=== PATIENT | male | born 1945 | race African-American/Black ===

== ENCOUNTER 2017-08-23 12:26 | Emergency (ER) | payer MEDICARE, OTHER ==
[~2017-08-23] VITALS: Ht 186.7 cm; Wt 94.5 kg
[~2017-08-23 12:26] MED LIST: 1-ME1LIQ PO; ECOT81TA2 PO; LISI-363 PO; OMEP20TA PO; PRAV40 PO
[2017-08-23 12:27] VITALS: BP 164/94; PULSE 98; RESP 16; TEMP 98.7; O2SAT 98
[2017-08-23] MEDS ORDERED: HEPATITIS B IMMUNE GLOBULIN IM ONE (17:30)
[2017-08-23] MEDS ORDERED: LOPINAVIR/RITONAVIR 200 MG/50 MG TAB PO ONE (17:30)
[2017-08-23] MEDS ORDERED: ZIDOVUDINE 100 MG CAP PO ONE (17:30)
--- NOTE | 2017-08-23 17:41 | PD ---
HPI Chief Complaint: Medical Clearance Time Seen by Provider: 17:07 Travel History International Travel<30 days: No Contact w/Intl Traveler<30days: No Traveled to known affect area: No History of Present Illness HPI 71yo M with PMH of prostate CA currently not on chemotherapy, pace maker here requesting PEP for possible exposure to HIV through sexual intercourse last night. Pt said it was anal intercourse with another man who most likely has HIV at 3am and he did not use protection. Pt denies any fever, chest pain, sob , n/v, abdominal pain, focal weakness or numbness. Pt went to health department and was told to come here for the medication. PFSH Past Medical History Hx Anticoagulant Therapy: No Arthritis: No Asthma: No Autoimmune Disease: No Anxiety: No Depression: No Heart Rhythm Problems: No Cancer: Yes (PROSTATE) Cardiovascular Problems: Yes (HTN, pacemaker) High Cholesterol: No Chemotherapy: No Chest Pain: No Congestive Heart Failure: No COPD: No Cerebrovascular Accident: No Diabetes: No Endocrine: No GERD: No Genitourinary: Yes (prostate cancer, in remission) Hiatal Hernia: No Hypertension: Yes Immune Disorder: No Kidney Stones: No Musculoskeletal: Yes (RIGHT KNEE ARTROSCOPY) Neurologic: No Psychiatric: No Reproductive: No Respiratory: No Migraines: No Radiation Therapy: Yes (PROSTATE) Renal Failure: No Seizures: No Sickle Cell Disease: No Sleep Apnea: No Ulcer: No Past Surgical History Abdominal Surgery: No AICD: No Arteriovenous Shunt: No Cardiac Surgery: Yes (HEART CATH 1999) Ear Surgery: No Endocrine Surgery: No Eye Surgery: Yes (LASIK SURGERY BILATERAL EYES) Genitourinary Surgery: No Gynecologic Surgery: No Insulin Pump: No Joint Replacement: No Oral Surgery: Yes (TEETH PULLED) Pacemaker: No Thoracic Surgery: No Other Surgery: Yes (2011) Social History Alcohol Use: No Tobacco Use: No Substance Use: No Allergies-Medications (Allergen,Severity, Reaction): Coded Allergies: No Known Allergies (Unverified , 05/05/15) Reported Meds & Prescriptions Reported Meds & Active Scripts Active Kaletra (Lopinavir/Ritonavir) 200-50 Mg Tab 2 Tab PO Q12HR 28 Days Fill this prescription for a 23 day supply of Kaletra ONLY if advised to do so by either [facility] OR the Emergency Department. Zidovudine 300 Mg Tab 300 Mg PO Q12HR 28 Days Lamivudine 150 Mg Tab 150 Mg PO BID 28 Days Lisinopril 20 mg (Lisinopril) 20 Mg Tab 1 Tab PO BID 30 Days Pravastatin Sodium 40 Mg Tab 40 Mg PO DAILY 30 Days Ecotrin Low Strength (Aspirin) 81 Mg Tabec 81 Mg PO DAILY 30 Days Reported Omeprazole 20 mg (Omeprazole) 20 Mg Tab 1 Tab PO DAILY 1-Methyl 2-Pyrrolidinone (1-Methyl 2-Pyrrolidone (Bulk)) 10 Mg Tab 1 Tab PO DAILY Review of Systems Except as stated in HPI: all other systems reviewed are Neg Physical Exam Narrative GENERAL: 71yo M not in distress. SKIN: Focused skin assessment warm/dry. HEAD: Atraumatic. Normocephalic. EYES: Pupils equal and round. No scleral icterus. No injection or drainage. ENT: No nasal bleeding or discharge. Mucous membranes pink and moist. NECK: Trachea midline. No JVD. CARDIOVASCULAR: Regular rate and rhythm. No murmur appreciated. RESPIRATORY: No accessory muscle use. Clear to auscultation. Breath sounds equal bilaterally. GASTROINTESTINAL: Abdomen soft, non-tender, nondistended. MUSCULOSKELETAL: No obvious deformities. No clubbing. No cyanosis. No edema. NEUROLOGICAL: Awake and alert. No obvious cranial nerve deficits. Motor grossly within normal limits. Normal speech. PSYCHIATRIC: Appropriate mood and affect; insight and judgment normal. Data Data Last Documented VS Vital Signs Date Time Temp Pulse Resp B/P (MAP) Pulse Ox O2 Delivery O2 Flow Rate FiO2 08/23/17 12:27 98.7 98 16 164/94 (117) 98 Orders Orders Lamivudine (Epivir) (08/23/17 17:30) Zidovudine (Retrovir) (08/23/17 17:30) Lopinavir-Ritonavir 200-50 Mg (Kaletra 2 (08/23/17 17:30) Complete Blood Count With Diff (08/23/17 17:18) Basic Metabolic Panel (Bmp) (08/23/17 17:18) Hepatic Functional Panel (08/23/17 17:18) Hepatitis B Surface Ag (08/23/17 17:18) Hepatitis B Surface Ab (08/23/17 17:18) Hepatitis B Core Total Ab (08/23/17 17:18) Hepatitis C Ab,Igg (08/23/17 17:18) Hiv Antibody Screen (08/23/17 17:18) Gc And Chlamydia Pcr (08/23/17 17:18) Electrocardiogram (08/23/17 17:01) Rapid Plasmin Reagin Screen (08/23/17 17:41) Non-Formulary Drug (08/23/17 19:00) Labs Laboratory Tests Test 08/23/17 19:25 White Blood Count 4.9 TH/MM3 Red Blood Count 5.52 MIL/MM3 Hemoglobin 15.4 GM/DL Hematocrit 44.9 % Mean Corpuscular Volume 81.3 FL Mean Corpuscular Hemoglobin 27.8 PG Mean Corpuscular Hemoglobin Concent 34.2 % Red Cell Distribution Width 14.8 % Platelet Count 149 TH/MM3 Mean Platelet Volume 8.6 FL Neutrophils (%) (Auto) 75.0 % Lymphocytes (%) (Auto) 14.3 % Monocytes (%) (Auto) 9.3 % Eosinophils (%) (Auto) 0.7 % Basophils (%) (Auto) 0.7 % Neutrophils # (Auto) 3.7 TH/MM3 Lymphocytes # (Auto) 0.7 TH/MM3 Monocytes # (Auto) 0.5 TH/MM3 Eosinophils # (Auto) 0.0 TH/MM3 Basophils # (Auto) 0.0 TH/MM3 CBC Comment DIFF FINAL Differential Comment Blood Urea Nitrogen 14 MG/DL Creatinine 1.29 MG/DL Random Glucose 90 MG/DL Total Protein 8.4 GM/DL Albumin 4.5 GM/DL Calcium Level 9.3 MG/DL Alkaline Phosphatase 53 U/L Aspartate Amino Transf (AST/SGOT) 22 U/L Alanine Aminotransferase (ALT/SGPT) 25 U/L Total Bilirubin 1.4 MG/DL Direct Bilirubin 0.3 MG/DL Sodium Level 139 MEQ/L Potassium Level 3.7 MEQ/L Chloride Level 103 MEQ/L Carbon Dioxide Level 28.0 MEQ/L Anion Gap 8 MEQ/L Estimat Glomerular Filtration Rate 67 ML/MIN Indirect Bilirubin 1.1 MG/DL [facility] Medical Decision Making Medical Screen Exam Complete: Yes Emergency Medical Condition: Yes Interpretation(s) EKG: Paced rhythm. No concordance. Differential Diagnosis Post exposure to possible HIV Narrative Course 71yo M here requesting post exposure prophylaxis for HIV after sexual intercourse last night. Will do baseline testing such as CBC, BMP, LFT, RPR, hep B, hep C, HIV. Pt does not remember his hepatitis B status and thinks he has had the vaccine before. Since he is high risk, will give Hep B immunoglobulin and have pt follow up with his primary care physician in 1 week. Pt given PEP and hepatitis B immunoglobulin. Labs reviewed, no leukocytosis. Mildly elevated bilirubin. Pt has no abdominal pain. AST/ALT normal. Strict return precautions given. Pt will be given 28 days worth of PEP. Pt to follow up with PMD in 1 week. Diagnosis Primary Impression: History of exposure to blood or body fluid Referrals: Anton Camejo MD as needed Patient Instructions: General Instructions Departure Forms: Tests/Procedures Additional Instructions: Please follow up with your primary care physician in 1 week. Please return to the ED if symptoms worsen. Med/Other Pt SpecificInfo: Prescription(s) given Scripts Lopinavir-Ritonavir (Kaletra) 200-50 Mg Tab 2 TAB PO Q12HR for Mgmt Viral Infection for 28 Days, #92 TAB 0 Refills Fill this prescription for a 23 day supply of Kaletra ONLY if advised to do so by either [facility] OR the Emergency Department. Prov: Roseann Nix DO 08/23/17 Zidovudine (Zidovudine) 300 Mg Tab 300 MG PO Q12HR for 28 Days, TAB Prov: Roseann Nix DO 08/23/17 Lamivudine (Lamivudine) 150 Mg Tab 150 MG PO BID for Mgmt Viral Infection for 28 Days, #56 TAB 0 Refills Prov: Roseann Nix DO 08/23/17 Roseann Nix DO Aug 23, 2017 17:41
[2017-08-23] MEDS ORDERED: ZIDO300T2 PO (18:21)
[2017-08-23] MEDS ORDERED: LAMI1TAB7 PO (18:21)
[2017-08-23] MEDS ORDERED: KALETRA200 PO (18:21)
[2017-08-23] MEDS ORDERED: NON-FORMULARY DRUG IM ONE (19:00)
[2017-08-23 19:57] LABS: AUTOMATED NEUTROPHIL # 3.7 TH/MM3 (1.8-7.7); BASOPHIL % 0.7 % (0.0-2.0); EOSINOPHIL % 0.7 % (0.0-4.0); HEMATOCRIT 44.9 % (39.0-51.0); HEMOGLOBIN 15.4 GM/DL (13.0-17.0); LYMPH % 14.3 % (9.0-44.0); LYMPHOCYTE # 0.7 TH/MM3 (1.0-4.8); MEAN CELL VOLUME 81.3 FL (80.0-100.0); MEAN CORPUSCULAR HEMOGLOBIN 27.8 PG (27.0-34.0); MEAN CORPUSCULAR HGB CONC 34.2 % (32.0-36.0); MEAN PLATELET VOLUME 8.6 FL (7.0-11.0); MONO % 9.3 % (0.0-8.0); MONOCYTE # 0.5 TH/MM3 (0-0.9); PLATELET COUNT 149 TH/MM3 (150-450); RED BLOOD COUNT 5.52 MIL/MM3 (4.50-5.90); RED CELL DISTRIBUTION WIDTH 14.8 % (11.6-17.2); WHITE BLOOD COUNT 4.9 TH/MM3 (4.0-11.0)
[2017-08-23 20:25] LABS: TOTAL BILIRUBIN ADULT 1.4 MG/DL (0.2-1.0); TOTAL PROTEIN 8.4 GM/DL (6.4-8.2)
[2017-08-23 20:30] LABS: ALBUMIN 4.5 GM/DL (3.4-5.0); CALCIUM 9.3 MG/DL (8.5-10.1); CREATININE 1.29 MG/DL (0.60-1.30); DIRECT BILIRUBIN ADULT 0.3 MG/DL (0.0-0.2); INDIRECT BILIRUBIN 1.1 MG/DL (0.0-0.8)
--- NOTE | 2017-08-24 16:36 | EKG ---
Date Performed: 08/23/2017 Time Performed: 17:01:59 PTAGE: 71 years EKG: Sinus rhythm LEFT ATRIAL ENLARGEMENT BORDERLINE LEFT AXIS DEVIATION LEFT VENTRICULAR HYPERTROPHY AND ST-T CHANGE Compared to previous tracing, ventricular pacing is no longer seen ABNORMAL ECG PREVIOUS TRACING : 05/07/2015 04.47 DOCTOR: Peyman Bower Interpretating Date/Time 08/24/2017 16:34:56
--- NOTE | 2017-08-24 16:37 | EKG ---
Date Performed: 08/23/2017 Time Performed: 20:21:09 PTAGE: 71 years EKG: ELECTRONIC VENTRICULAR PACEMAKER Compared to previous tracing, ventricular pacing was not p resent on the last EKG ABNORMAL RHYTHM ECG PREVIOUS TRACING : 08/23/2017 17.01 DOCTOR: Peyman Bower Interpretating Date/Time 08/24/2017 16:35:37
[2017-08-26 11:26] LABS: HEPATITIS B SURFACE ANTIGEN NEGATIVE (NEGATIVE); HEPATITIS C AB IgG NEGATIVE (NEGATIVE)
== END 2017-08-23 21:18 | disposition home or self-care (01) ==
LOC: NEPD 12:26
DX: Z20.6 Contact with and (suspected) exposure to human immunodeficiency virus [HIV] (principal); Z85.46 Personal history of malignant neoplasm of prostate; R94.31 Abnormal electrocardiogram [ECG] [EKG]; I10 Essential (primary) hypertension; Z79.899 Other long term (current) drug therapy
CPT/HCPCS: 80048; 80076; 85025; 86317; 86592; 86703; 86704; 86803; 87340; 87491; 87591; 93005; 96372; 99284; G0010; 90471